=== PATIENT | female | born 1975 | race Caucasian/White ===

== ENCOUNTER 2018-04-05 13:52 | Emergency (ER) | payer SELFPAY ==
[2018-04-05] MEDS ORDERED: NA CHLORIDE 0.9% 1,000 ML ONE (14:14)
[2018-04-05 14:34] LABS: Absolute Lymphocytes (CBC) 1.9 K/uL (0.7-4.9); Eosinophils % 0.7 % (0-4.4); Hematocrit 41.2 % (36.0-45.0); Lymphocytes % 21.4 % (15.3-44.8); MCH 31.8 pg (27.0-35.0); MCV 93.9 fL (80-100); MPV 9.6 fL (7.6-11.3); Monocytes % 10.8 % (3.3-12.3); RBC Red Blood Cell Count 4.39 M/uL (3.86-4.86)
[2018-04-05 14:38] LABS: Protime INR 1.08
[2018-04-05 14:55] LABS: Bicarbonate 25 mEq/L (21-31); Glucose Level 123 mg/dL (65-120); Potassium 3.4 mEq/L (3.6-5.0); Sodium Level 137 mEq/L (135-145)
[2018-04-05 15:01] LABS: ALT/SGPT 129 IU/L (10-60); AST/SGOT 77 IU/L (10-42); Albumin 4.6 g/dL (3.2-5.5); Alkaline Phosphatase 33 IU/L (42-121); BUN Blood Urea Nitrogen 9 mg/dL (6-20); Bilirubin Direct 0.2 mg/dL (0-0.2); Bilirubin Total 0.6 mg/dL (0.3-1.2); Protein, Total 7.9 g/dL (6.0-8.3)
[2018-04-05 15:23] LABS: Alcohol Serum/Plasma < 10 mg/dl
[2018-04-05 15:32] LABS: Barbiturates NEGATIVE (NEGATIVE); Benzodiazepines POSITIVE (NEGATIVE); Cocaine NEGATIVE (NEGATIVE); Opiates NEGATIVE (NEGATIVE); Phencyclidine NEGATIVE (NEGATIVE); THC Cannibis NEGATIVE (NEGATIVE)
[2018-04-05 15:41] LABS: METHAMPHETAM POSITIVE (NEGATIVE)
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
[2018-04-05 17:18] LABS: Urine Blood 1+ (NEG); Urine Glucose NEGATIVE (NEG); Urine Protein 2+ (NEG); Urine pH 7.5 (5.0-7.0)
--- NOTE | 2018-04-06 06:31 | EKG ---
Test Date: 2018-04-05 Test Time: 14:35:33 Heavy Equipment Service Technician: SCOOBY MEASUREMENT RESULTS: Intervals: Rate: 92 OR: 142 QRSD: 108 QT: 380 QTc: 469 [place]: P: -15 OR: 142 QRS: -13 T: 17 INTERPRETIVE STATEMENTS: Normal sinus rhythm Incomplete right bundle branch block Borderline ECG No previous ECG available for comparison Electronically Signed On 04-06-18 06:29:17 CDT by Jhon Arreola
== END 2018-04-05 16:23 | disposition home or self-care (01) ==
LOC: ER 13:52
DX: R00.2 Palpitations (principal); T43.625A Adverse effect of amphetamines, initial encounter; F17.200 Nicotine dependence, unspecified, uncomplicated; Z88.2 Allergy status to sulfonamides; Y92.9 Unspecified place or not applicable
CPT/HCPCS: 36415; 80048; 80076; 80307; 80320; 80329; 81003; 81025; 83735; 84484; 85025; 85610; 85730; 93005; 99284; J7030

== ENCOUNTER 2018-09-27 09:07 | Emergency (ER) | payer SELFPAY ==
[2018-09-27] MEDS ORDERED: LORAZEPAM 1 MG TABLET ONE (10:05)
[2018-09-27 10:22] LABS: Arterial Blood Carboxyhemoglob 1.8 % (0-1.5); Blood Gas Oxyhemoglobin 95.3 % (94-97); Blood O2 Saturation 98.2 % (92-98.5)
--- NOTE | 2018-09-27 10:47 | EDPHYS ---
Physician Documentation [facility] Name: Rose Marie Day Age: 42 yrs Sex: Female : 1975 Arrival Date: 09/27/2018 Time: 09:09 Bed 19 Private MD: ED Physician Albino Lujan HPI: 09/27 09:47 This 42 yrs old Female presents to ER via Ambulatory with complaints of caleb Anxiety. 09:47 The patient presents to the emergency department with anxiety. Onset: The caleb symptoms/episode began/occurred 1 day(s) ago. Past psychiatric history: Prior diagnosis: no previous psychiatric diagnosis known, Psychiatric medications include: none. etoh, anxiety. Associated signs and symptoms: Pertinent positives; anxiety, nausea. Severity of symptoms: At their worst the symptoms were mild in the emergency department the symptoms are unchanged. Historical: - Allergies: 09:17 Sulfa (Sulfonamide Antibiotics); hb - Home Meds: 09:17 hydrochlorothiazide 12.5 mg Oral cap 1 cap once daily [Active]; hb - PMHx: 09:17 Hypertension; Anxiety; hb - PSHx: 09:17 Appendectomy; hb - Immunization history:: Adult Immunizations up to date. - Social history:: Smoking status: Patient uses tobacco products, denies chronic smoking, but will smoke occasionally. - Ebola Screening: : No symptoms or risks identified at this time. - Family history:: not pertinent. ROS: 09:47 Constitutional: Negative for fever, chills, and weight loss, Eyes: Negative for injury, caleb pain, redness, and discharge, ENT: Negative for injury, pain, and discharge, Neck: Negative for injury, pain, and swelling, Cardiovascular: Negative for chest pain, palpitations, and edema, Respiratory: Negative for shortness of breath, cough, wheezing, and pleuritic chest pain, Abdomen/GI: Negative for abdominal pain, nausea, vomiting, diarrhea, and constipation, Back: Negative for injury and pain, : Negative for injury, bleeding, discharge, and swelling, MS/Extremity: Negative for injury and deformity, Skin: Negative for injury, rash, and discoloration, Psych: Negative for depression, anxiety, suicide ideation, homicidal ideation, and hallucinations, Allergy/Immunology: Negative for hives, rash, and allergies, Endocrine: Negative for neck swelling, polydipsia, polyuria, polyphagia, and marked weight changes, Hematologic/Lymphatic: Negative for swollen nodes, abnormal bleeding, and unusual bruising. 09:47 Neuro: Positive for weakness. Exam: 09:47 Constitutional: This is a well developed, well nourished patient who is awake, alert, caleb and in no acute distress. Head/Face: Normocephalic, atraumatic. Eyes: Pupils equal round and reactive to light, extra-ocular motions intact. Lids and lashes normal. Conjunctiva and sclera are non-icteric and not injected. Cornea within normal limits. Periorbital areas with no swelling, redness, or edema. ENT: Nares patent. No nasal discharge, no septal abnormalities noted. Tympanic membranes are normal and external auditory canals are clear. Oropharynx with no redness, swelling, or masses, exudates, or evidence of obstruction, uvula midline. Mucous membranes moist. Neck: Trachea midline, no thyromegaly or masses palpated, and no cervical lymphadenopathy. Supple, full range of motion without nuchal rigidity, or vertebral point tenderness. No Meningismus. Chest/axilla: Normal chest wall appearance and motion. Nontender with no deformity. No lesions are appreciated. Cardiovascular: Regular rate and rhythm with a normal S1 and S2. No gallops, murmurs, or rubs. Normal PMI, no JVD. No pulse deficits. Respiratory: Lungs have equal breath sounds bilaterally, clear to auscultation and percussion. No rales, rhonchi or wheezes noted. No increased work of breathing, no retractions or nasal flaring. Abdomen/GI: Soft, non-tender, with normal bowel sounds. No distension or tympany. No guarding or rebound. No evidence of tenderness throughout. Back: No spinal tenderness. No costovertebral tenderness. Full range of motion. Skin: Warm, dry with normal turgor. Normal color with no rashes, no lesions, and no evidence of cellulitis. MS/ Extremity: Pulses equal, no cyanosis. Neurovascular intact. Full, normal range of motion. Neuro: Awake and alert, GCS 15, oriented to person, place, time, and situation. Cranial nerves II-XII grossly intact. Motor strength 5/5 in all extremities. Sensory grossly intact. Cerebellar exam normal. Normal gait. Psych: Awake, alert, with orientation to person, place and time. Behavior, mood, and affect are within normal limits. 09:47 Musculoskeletal/extremity: DVT Exam: No signs of deep vein thrombosis. no pain, no swelling, no tenderness, negative Homans' sign noted on exam, no appreciated bluish discoloration, no erythema, no increased warmth. Vital Signs: 09:16 BP 168 / 105; Pulse 88; Resp 16; Temp 98.2; Pulse Ox 100% on R/A; Pain 0/10; hb 10:17 BP 147 / 78; Pulse 67; Resp 20; Pulse Ox 99% on R/A; Pain 0/10; em MDM: 09:15 Patient medically screened. [facility] 09:49 Data reviewed: vital signs, nurses notes, lab test result(s), EKG, radiologic studies. [facility] 09/27 09:47 Order name: ABG [facility] 09/27 09:47 Order name: EKG; Complete Time: 09:48 [facility] 09/27 09:47 Order name: EKG - Nurse/Tech; Complete Time: 10:27 [facility] 09/27 09:55 Order name: PO challenge; Complete Time: 10:47 [facility] Administered Medications: 09:55 Not Given (Duplicate Order): Poliovirus Vaccine (IPV) 0.5 ml Sub-Q once [facility] 10:06 Drug: Ativan 1 mg Route: PO; em 10:59 Follow up: Response: No adverse reaction; Anxiety decreased em Disposition: 09/27/18 10:46 Discharged to Home. Impression: Anxiety disorder, unspecified, Alcohol abuse, uncomplicated, Hyperventilation. - Condition is Stable. - Discharge Instructions: Panic Attacks, Hyperventilation, Substance Use Disorder, Alcohol Abuse and Nutrition, Panic Attacks, [id number]. - Prescriptions for Benadryl 25 mg Oral Capsule - take 1 capsule by ORAL route every 6 hours As needed; 30 tablet. Xanax 1 mg Oral Tablet - take 1 tablet by ORAL route every 8 hours As needed; 20 tablet. - Medication Reconciliation Form, Thank You Letter, Antibiotic Education, Prescription Opioid Use form. - Follow up: Private Physician; When: 2 - 3 days; Reason: Recheck today's complaints, Continuance of care, Re-evaluation by your physician. - Problem is new. - Symptoms have improved. Signatures: Dispatcher [employer] EDAlbino Love MD MD cha Munoz, Edgar, TREE SAPPER TREE SAPPER em Monica Devries, RN RN Corrections: (The following items were deleted from the chart) 09:17 09:17 PSHx: None; hb hb 10:59 10:46 09/27/2018 10:46 Discharged to Home. Impression: Anxiety disorder, unspecified; em Alcohol abuse, uncomplicated; Hyperventilation. Condition is Stable. Discharge Instructions: Panic Attacks, Substance Use Disorder, Alcohol Abuse and Nutrition, Panic Attacks, [id number]. Prescriptions for Benadryl 25 mg Oral Capsule - take 1 capsule by ORAL route every 6 hours As needed; 30 tablet, Xanax 1 mg Oral Tablet - take 1 tablet by ORAL route every 8 hours As needed; 20 tablet. and Forms are Medication Reconciliation Form, Thank You Letter, Antibiotic Education, Prescription Opioid Use. Follow up: Private Physician; When: 2 - 3 days; Reason: Recheck today's complaints, Continuance of care, Re-evaluation by your physician. Problem is new. Symptoms have improved. caleb
--- NOTE | 2018-09-27 10:47 | ER ---
Nurse's Notes [facility] Name: Rose Marie Day Age: 42 yrs Sex: Female : 1975 Arrival Date: 09/27/2018 Time: 09:09 Bed 19 Private MD: Diagnosis: Anxiety disorder, unspecified;Alcohol abuse, uncomplicated;Hyperventilation Presentation: 09/27 09:15 Presenting complaint: Patient states: "I drank wine last night and I woke up and fell hb so anxious and I'm shaking and my hands are tingly.". Transition of care: patient was not received from another setting of care. Onset of symptoms was September 27, 2018. Risk Assessment: Do you want to hurt yourself or someone else? Patient reports no desire to harm self or others. Initial Sepsis Screen: Does the patient meet any 2 criteria? No. Patient's initial sepsis screen is negative. Does the patient have a suspected source of infection? No. Patient's initial sepsis screen is negative. Care prior to arrival: None. 09:15 Method Of Arrival: Ambulatory hb 09:15 Acuity: AILYN 3 hb Historical: - Allergies: 09:17 Sulfa (Sulfonamide Antibiotics); hb - Home Meds: 09:17 hydrochlorothiazide 12.5 mg Oral cap 1 cap once daily [Active]; hb - PMHx: 09:17 Hypertension; Anxiety; hb - PSHx: 09:17 Appendectomy; hb - Immunization history:: Adult Immunizations up to date. - Social history:: Smoking status: Patient uses tobacco products, denies chronic smoking, but will smoke occasionally. - Ebola Screening: : No symptoms or risks identified at this time. - Family history:: not pertinent. Screenin:17 Abuse screen: Denies threats or abuse. Denies injuries from another. Nutritional hb screening: No deficits noted. Tuberculosis screening: No symptoms or risk factors identified. Fall Risk None identified. Assessment: 09:30 General: Appears uncomfortable, Behavior is anxious. Pain: Denies pain. Neuro: Level of em Consciousness is awake, alert, obeys commands, Oriented to person, place, time, situation. Cardiovascular: Reports shortness of breath, hyperventilation Denies chest pain, Capillary refill < 3 seconds. Respiratory: Airway is patent Respiratory effort is even, unlabored, Respiratory pattern is regular, symmetrical. GI: Patient currently denies nausea, vomiting. : No signs and/or symptoms were reported regarding the genitourinary system. EENT: No signs and/or symptoms were reported regarding the EENT system. Derm: Skin is intact, Skin is pink, warm \\T\\ dry. Musculoskeletal: Range of motion: intact in all extremities. 09:35 Reassessment: I agree with previous assessment. hb Vital Signs: 09:16 BP 168 / 105; Pulse 88; Resp 16; Temp 98.2; Pulse Ox 100% on R/A; Pain 0/10; hb 10:17 BP 147 / 78; Pulse 67; Resp 20; Pulse Ox 99% on R/A; Pain 0/10; em ED Course: 09:09 Patient arrived in ED. as 09:15 Albino Lujan MD is Attending Physician. [facility] 09:16 Triage completed. hb 09:16 Arm band placed on right wrist. hb 09:50 Patient has correct armband on for positive identification. Bed in low position. Call em light in reach. Adult w/ patient. 09:51 Janusz Mendoza LVN is Primary Nurse. em 10:27 EKG done, by ED staff, reviewed by Albino Lujan MD. [facility] 10:54 Patient did not have IV access during this emergency room visit. em 10:58 No provider procedures requiring assistance completed. em Administered Medications: 09:55 Not Given (Duplicate Order): Poliovirus Vaccine (IPV) 0.5 ml Sub-Q once caleb 10:06 Drug: Ativan 1 mg Route: PO; em 10:59 Follow up: Response: No adverse reaction; Anxiety decreased em Outcome: 10:46 Discharge ordered by . caleb 10:59 Patient left the ED. em Signatures: Albino Lujan MD MD cha Munoz, Edgar, LVN LVN em Yadira Thomson Heather, RN RN Jojo Timmons [facility] Corrections: (The following items were deleted from the chart) 09:17 09:17 PSHx: None; hb hb
--- NOTE | 2018-09-28 07:42 | EKG ---
Test Date: 2018-09-27 Test Time: 10:26:01 Assistant Professor Of English: DONN MEASUREMENT RESULTS: Intervals: Rate: 69 [place]: 144 QRSD: 106 QT: 408 QTc: 437 Burns: P: 14 [place]: 144 QRS: 22 T: 47 INTERPRETIVE STATEMENTS: Normal sinus rhythm Incomplete right bundle branch block Borderline ECG Compared to ECG 04/05/2018 14:35:33 No significant changes Electronically Signed On 09-28-18 07:40:11 [employer] by Jhon Arreola
== END 2018-09-27 10:59 | disposition home or self-care (01) ==
LOC: ER 09:07
DX: F41.9 Anxiety disorder, unspecified (principal); F10.10 Alcohol abuse, uncomplicated; R06.4 Hyperventilation; I10 Essential (primary) hypertension; Z79.899 Other long term (current) drug therapy; Z72.0 Tobacco use
CPT/HCPCS: 82805; 93005; 99283